=== PATIENT | female | born 1970 | race Caucasian/White ===

== ENCOUNTER 2016-09-07 16:36 | Emergency (ER) | END 2016-09-07 20:59 | disposition home or self-care (01) | DX: R10.13 Epigastric pain (principal); R11.2 Nausea with vomiting, unspecified | CPT/HCPCS: 36415; 74176; 76705; 80053; 81001; 83690; 85025; 96374; 96375; J1885; J2270; J2405; J7030; Z7502 ==

== ENCOUNTER 2017-05-24 16:14 | Emergency (ER) | END 2017-05-24 19:22 | disposition home or self-care (01) ==

== ENCOUNTER 2018-09-04 19:52 | Emergency (ER) | payer MEDICAID ==
[~2018-09-04] VITALS: Ht 162.6 cm; Wt 61.7 kg
[~2018-09-04 19:52] MED LIST: ACET500C5 PO; ALBU18HF INHALATION; AZIT250T PO; CEPH-443 PO; FAMO-96 PO; HYDR-4011 PO; ONDA4TAB13 PO; PRED20TA PO
[2018-09-04 20:10] VITALS: BP 131/88; PULSE 73; RESP 18; Ht 162.6 cm; Wt 61.7 kg
[2018-09-04] MEDS ORDERED: DIPHTH/TET/ACEL PERTUSS (ADULT) 0.5 ML VIAL IM* ONE (20:30)
[2018-09-04] MEDS ORDERED: IBUPROFEN 800 MG TAB PO ONE (20:30)
--- NOTE | 2018-09-04 20:36 | ERD ---
ER Documentation Chief Complaint Chief Complaint dog bite to right leg around noon today HPI Patient is a 48 years of female with no known past medical history presents to the clinic for dog bite on proximal right lower extremity on the lateral side x few hours ago. Patient admits to working at the [employer] wound of the customer's dog bit her. She reports dog is normally playful and energetic and is unsure why the dog bit her today. Patient denies seeing any frothy saliva drooling from mouth. Patient denies bleeding or puncture on area of dog bite. Patient rates her pain 9 out of 10 denies taking any mxap-nom-aqjdycu medication. ROS All systems reviewed and are negative except as per history of present illness. Medications Home Meds Active Scripts Acetaminophen* (Tylophen*) 500 Mg Capsule, 1 CAP PO Q6H PRN for PAIN AND OR ELEVATED TEMP, #20 CAP Prov:LAMAR JOHN PA-C 05/24/17 Albuterol Sulfate* (Ventolin HFA*) 18 Gm Hfa.aer.ad, 2 PUFF INHALATION Q4H, #1 INHALER Prov:LAMAR JOHN PA-C 05/24/17 Azithromycin* (Zithromax*) 250 Mg Tablet, 250 MG PO .ZPACK DIRECTED, #6 TAB TAKE 500 MG (2 TABS) THE FIRST DAY THEN 250 MG (1 TAB) DAYS 2-5 Prov:LAMAR JOHN PA-C 05/24/17 Prednisone* (Prednisone*) 20 Mg Tab, 40 MG PO DAILY for 4 Days, TAB Prov:LAMAR JOHN PA-C 05/24/17 Ondansetron Hcl* (Zofran*) 4 Mg Tab, 4 MG PO Q4H PRN for NAUSEA AND OR VOMITING, #20 TAB Prov:TERRY LYNN 09/07/16 Cephalexin* (Keflex*) 500 Mg Capsule, 500 MG PO BID for 7 Days, #14 CAP Prov:LEAHTERRY LIMON 09/07/16 Famotidine* (Pepcid*) 20 Mg Tablet, 20 MG PO BID for 14 Days, TAB Prov:TERRY LYNN 09/07/16 Hydrocodone/Acetaminophen ([place] 5-325 Tablet) 1 Each Tablet, 1 TAB PO Q6H PRN for PAIN, #20 TAB Prov:TERRY LYNN 09/07/16 Allergies Allergies: Coded Allergies: No Known Allergy (Unverified , 09/07/16) PMhx/Soc Medical and Surgical Hx: pt denies Medical Hx History of Surgery: Yes ( X2 ) Anesthesia Reaction: No Hx Neurological Disorder: No Hx Respiratory Disorders: No Hx Cardiac Disorders: No Hx Psychiatric Problems: No Hx Miscellaneous Medical Probl: No Hx Alcohol Use: No Hx Substance Use: No Hx Tobacco Use: No Smoking Status: Never smoker FmHx Father has history of diabetes Physical Exam Vitals Vital Signs Date Temp Pulse Resp B/P (MAP) Pulse Ox O2 O2 Flow FiO2 Time Delivery Rate 09/04/18 98.0 73 18 131/88 100 20:10 (102) Physical Exam Const: No acute distress Head: Atraumatic Eyes: Normal Conjunctiva Resp: Clear to auscultation bilaterally Cardio: Regular rate and rhythm, no murmurs Abd: Soft, non tender, non distended. Normal bowel sounds Skin: Ecchymoses mild edema proximal lateral right lower extremity. No signs of perforation, laceration, bleeding, pus drainage. Skin intact. Neur: Awake and alert Psych: Normal Mood and Affect Procedures/MDM Patient seen and evaluated for dog bite wound on right lower extremity no complication. Patient was given Tdap and Motrin 800 mg. No laceration or wound care required for today's visit. She is stable and ready for discharge. Follow up with PCP. No antibiotic required for today's visit as there are no signs of perforation or laceration. Signs of infection appears, patient was advised to follow-up in ED or PCP. Departure Diagnosis: Primary Impression: Bite by animal Condition: Stable Patient Instructions: Animal Bite, General Referrals: [facility] Additional Instructions: Paciente aconseja volver a Departamento de urgencias inmediatamente para sntomas nuevos o que empeoran . Paciente aconseja posteriores con el PCP en 2-3 sanches . Paciente verbaliza la comprehensin y est de acuerdo con el tratamiento y el curso de accin. Si el paciente no tiene ninguna de atencin primaria pueden seguir con [facility] [address] [place] [address] o [facility] + [facility] [address] [place] [address] ROMARIO ALFORD PA-C Sep 04, 2018 20:36
[2018-09-04] MEDS ORDERED: IBUP800T48 PO (20:37)
== END 2018-09-04 21:13 | disposition home or self-care (01) ==
LOC: FTE 19:52
DX: S80.11XA Contusion of right lower leg, initial encounter (principal); W54.0XXA Bitten by dog, initial encounter; Y92.9 Unspecified place or not applicable; Z23 Encounter for immunization
CPT/HCPCS: 90471; 90715; Z7502; Z7610